=== PATIENT | male | born 1960 | race Caucasian/White ===

== ENCOUNTER 2017-06-08 22:46 | Inpatient (IN) | payer MEDICARE, SELFPAY ==
[~2017-06-08] VITALS: Ht 180.3 cm; Wt 68.1 kg
[2017-06-08] MEDS ORDERED: SODIUM CHLORIDE 0.9% 1,000 ML IV ONE (23:24)
[2017-06-08] MEDS ORDERED: VANCOMYCIN 1,400 MG in SODIUM CHLORIDE 0.9% 250 ML IV ONE (23:30)
[2017-06-08] MEDS ORDERED: VANCOMYCIN PER PHARMACY IV ONE (23:30)
[2017-06-08] MEDS ORDERED: SODIUM CHLORIDE FLUSH 10ML SYR IVF ONE (23:30)
[2017-06-08] MEDS ORDERED: AMPICILLIN/SULBACTAM 1,500 MG in SODIUM CHLORIDE 0.9% 50 ML IVPB ONE (23:30)
[2017-06-08] MEDS ORDERED: ONDANSETRON 2MG/ML, 2ML IVPush ONE (23:30)
[2017-06-08] MEDS ORDERED: MORPHINE SULFATE 4 MG/ML, 1ML IVPush PRN (23:30)
[2017-06-08] MEDS ORDERED: SODIUM CHLORIDE 0.9% 1,000ML IVBOLUS ONE (23:30)
[2017-06-08] MEDS ORDERED: MORPHINE SULFATE 4 MG/ML, 1ML ONE (23:51)
[2017-06-08] MEDS ORDERED: ONDANSETRON 2MG/ML, 2ML ONE (23:51)
[2017-06-08 23:56] LABS: BASOPHILS # (AUTO) 0.07 x10^3/uL (0-0.1); BASOPHILS % (AUTO) 1 % (0-1); EOSINOPHILS # (AUTO) 0.15 x10^3/uL (0-0.4); EOSINOPHILS % (AUTO) 1 % (1-7); LYMPHOCYTES # (AUTO) 2.25 x10^3/uL (1-3.4); LYMPHOCYTES % (AUTO) 16 % (22-44); MD NO; MEAN CORPUSCULAR HGB CONC 33.9 g/dL (33.2-36.2); MEAN CORPUSCULAR VOLUME 85.4 fL (81-97); MONOCYTES # (AUTO) 0.76 x10^3/uL (0.2-0.8); MONOCYTES % (AUTO) 5 % (2-9); NEUTROPHILS # (AUTO) 11.21 x10^3/uL (1.8-6.8); NEUTROPHILS % (AUTO) 78 % (42-75); PLATELET COUNT 480 x10^3/uL (130-400); RED BLOOD COUNT 3.79 x10^6/uL (4.38-5.82); RED CELL DISTRIBUTION WIDTH 13.7 % (9.4-14.8)
[2017-06-09 00:07] LABS: CHLORIDE 92 mmol/L (98-107)
[2017-06-09 00:08] LABS: ALBUMIN 2.1 g/dL (3.4-5.0); ANION GAP 12 mmol/L (5-15); CALCIUM 8.6 mg/dL (8.5-10.1); CREATININE 0.94 mg/dL (0.7-1.3)
[2017-06-09] MEDS ORDERED: VANCOMYCIN PER PHARMACY MC PRN (01:30)
[2017-06-09] MEDS ORDERED: hydrALAzine 20 MG/ML, 1ML IVPush PRN (02:00)
[2017-06-09] MEDS ORDERED: morphine SULFATE 10 MG/ML, 1ML IVPush PRN (02:00)
[2017-06-09] MEDS ORDERED: ONDANSETRON 2MG/ML, 2ML IVPush PRN (02:00)
[2017-06-09] MEDS ORDERED: ENALAPRILAT 1.25 MG/ML, 2ML IVPush PRN (02:00)
[2017-06-09] MEDS ORDERED: ACETAMINOPHEN 325 MG TABLET PO PRN (02:00)
[2017-06-09] MEDS ORDERED: POLYETHYLENE GLYCOL 17 GM PACKET PO PRN (02:00)
[2017-06-09] MEDS ORDERED: BISACODYL 10 MG SUPP PR PRN (02:00)
[2017-06-09 02:10] VITALS: BP 131/80
[2017-06-09 02:30] LABS: FREE T4 (FREE THYROXINE) 1.31 ng/dL (0.76-1.46); HEMOGLOBIN A1C 8.9 % (4.2-6.3); THYROID STIMULATING HORMONE 8.76 mIU/L (0.358-3.740)
[2017-06-09] MEDS: PIPERACILLIN/TAZO/PMX 3.375GM 50 ML IV SCH ×4 (02:34→19:19)
[2017-06-09] MEDS: SODIUM CHLORIDE 0.9% 1,000 ML IV SCH ×3 (02:36→20:00)
[2017-06-09] MEDS: ENOXAPARIN 40 MG/0.4 ML SQ SCH (02:37)
[2017-06-09 03:13] LABS: CULTURE INDICATED? YES; MICROSCOPIC INDICATED
[2017-06-09] MEDS ORDERED: PHARMACOKINETIC CONSULTATION MC ONE (04:00)
[2017-06-09] MEDS ORDERED: PHARMACOKINETIC MONITORING MC PRN (04:00)
[2017-06-09] MEDS: INSULIN ASPART 100 UNITS/ML, PEN SQ-INSULIN SCH ×4 (07:00→21:43)
[2017-06-09 07:43] VITALS: BP 114/73
[2017-06-09] MEDS: OXYcodone IR 5MG TABLET PO PRN ×2 (08:05→13:48)
[2017-06-09] MEDS: SENNA/DOCUSATE TABLET PO SCH (09:00)
[2017-06-09] MEDS: VANCOMYCIN 1,300 MG in SODIUM CHLORIDE 0.9% 250 ML IV SCH ×2 (11:24→23:36)
[2017-06-09] MEDS ORDERED: MAGNESIUM SULFATE PMX 2GM/50ML 50 ML IV ONE (12:00)
[2017-06-09 15:23] VITALS: BP 123/75
[2017-06-09 20:47] VITALS: BP 133/77
[2017-06-10] MEDS: PIPERACILLIN/TAZO/PMX 3.375GM 50 ML IV SCH ×4 (01:33→19:59)
[2017-06-10] MEDS: OXYcodone IR 5MG TABLET PO PRN ×3 (01:39→20:05)
[2017-06-10] MEDS: ENOXAPARIN 40 MG/0.4 ML SQ SCH (01:39)
[2017-06-10 03:28] VITALS: BP 143/83
[2017-06-10 05:29] LABS: CHLORIDE 100 mmol/L (98-107)
[2017-06-10 05:41] LABS: ALANINE AMINOTRANSFERASE 8 U/L (12-78); ALBUMIN 1.8 g/dL (3.4-5.0); ALKALINE PHOSPHATASE 85 U/L (45-117); ANION GAP 4 mmol/L (5-15); BILIRUBIN,TOTAL 0.5 mg/dL (0.2-1.0); CALCIUM 8.4 mg/dL (8.5-10.1); CREATININE 0.77 mg/dL (0.7-1.3); TOTAL PROTEIN 7.8 g/dL (6.4-8.2)
[2017-06-10 05:46] LABS: BASOPHILS # (AUTO) 0.07 x10^3/uL (0-0.1); BASOPHILS % (AUTO) 1 % (0-1); EOSINOPHILS # (AUTO) 0.13 x10^3/uL (0-0.4); EOSINOPHILS % (AUTO) 1 % (1-7); LYMPHOCYTES # (AUTO) 1.87 x10^3/uL (1-3.4); LYMPHOCYTES % (AUTO) 17 % (22-44); MD NO; MEAN CORPUSCULAR HEMOGLOBIN 28.9 pg (27.5-34.5); MEAN CORPUSCULAR HGB CONC 33.5 g/dL (33.2-36.2); MEAN CORPUSCULAR VOLUME 86.2 fL (81-97); MONOCYTES # (AUTO) 0.64 x10^3/uL (0.2-0.8); MONOCYTES % (AUTO) 6 % (2-9); NEUTROPHILS # (AUTO) 8.13 x10^3/uL (1.8-6.8); NEUTROPHILS % (AUTO) 75 % (42-75); PLATELET COUNT 353 x10^3/uL (130-400); RED CELL DISTRIBUTION WIDTH 13.9 % (9.4-14.8)
[2017-06-10] MEDS: INSULIN ASPART 100 UNITS/ML, PEN SQ-INSULIN SCH ×4 (07:42→22:47)
[2017-06-10] MEDS: SENNA/DOCUSATE TABLET PO SCH (09:00)
[2017-06-10] MEDS: VANCOMYCIN 1,300 MG in SODIUM CHLORIDE 0.9% 250 ML IV SCH (12:07)
[2017-06-10 14:22] VITALS: BP 153/87
[2017-06-10 20:41] VITALS: BP 132/81
[2017-06-11] MEDS: VANCOMYCIN 1,300 MG in SODIUM CHLORIDE 0.9% 250 ML IV SCH ×3 (00:12→23:59)
[2017-06-11] MEDS: ENOXAPARIN 40 MG/0.4 ML SQ SCH (02:10)
[2017-06-11] MEDS: PIPERACILLIN/TAZO/PMX 3.375GM 50 ML IV SCH ×4 (02:11→19:45)
[2017-06-11] MEDS: OXYcodone IR 5MG TABLET PO PRN ×2 (02:16→08:40)
[2017-06-11 02:54] VITALS: BP 135/78
[2017-06-11 05:41] LABS: BASOPHILS # (AUTO) 0.06 x10^3/uL (0-0.1); BASOPHILS % (AUTO) 1 % (0-1); EOSINOPHILS # (AUTO) 0.27 x10^3/uL (0-0.4); EOSINOPHILS % (AUTO) 3 % (1-7); LYMPHOCYTES # (AUTO) 2.26 x10^3/uL (1-3.4); LYMPHOCYTES % (AUTO) 20 % (22-44); MD NO; MEAN CORPUSCULAR HEMOGLOBIN 29.3 pg (27.5-34.5); MEAN CORPUSCULAR HGB CONC 33.9 g/dL (33.2-36.2); MEAN CORPUSCULAR VOLUME 86.3 fL (81-97); MEAN PLATELET VOLUME 7.8 fL (7.4-10.4); MONOCYTES # (AUTO) 0.69 x10^3/uL (0.2-0.8); MONOCYTES % (AUTO) 6 % (2-9); NEUTROPHILS # (AUTO) 7.85 x10^3/uL (1.8-6.8); NEUTROPHILS % (AUTO) 71 % (42-75); PLATELET COUNT 378 x10^3/uL (130-400); RED BLOOD COUNT 3.68 x10^6/uL (4.38-5.82); RED CELL DISTRIBUTION WIDTH 13.8 % (9.4-14.8)
[2017-06-11 05:58] LABS: ANION GAP 6 mmol/L (5-15); CALCIUM 8.6 mg/dL (8.5-10.1); CHLORIDE 98 mmol/L (98-107); CREATININE 0.67 mg/dL (0.7-1.3)
[2017-06-11] MEDS: INSULIN ASPART 100 UNITS/ML, PEN SQ-INSULIN SCH ×4 (08:05→20:56)
[2017-06-11] MEDS: SENNA/DOCUSATE TABLET PO SCH (08:39)
[2017-06-11] MEDS: INSULIN DETEMIR 100 UNITS/ML, PEN SQ-INSULIN SCH (08:40)
[2017-06-11 08:44] VITALS: BP 132/80
[2017-06-11 14:10] VITALS: BP 136/81
[2017-06-11 20:00] VITALS: BP 145/83
[2017-06-12] MEDS: PIPERACILLIN/TAZO/PMX 3.375GM 50 ML IV SCH ×4 (02:00→19:28)
[2017-06-12] MEDS: ENOXAPARIN 40 MG/0.4 ML SQ SCH (02:01)
[2017-06-12 03:59] VITALS: BP 138/81
[2017-06-12 06:46] LABS: BASOPHILS # (AUTO) 0.07 x10^3/uL (0-0.1); BASOPHILS % (AUTO) 1 % (0-1); EOSINOPHILS % (AUTO) 3 % (1-7); LYMPHOCYTES # (AUTO) 2.35 x10^3/uL (1-3.4); LYMPHOCYTES % (AUTO) 26 % (22-44); MD NO; MEAN CORPUSCULAR HEMOGLOBIN 28.7 pg (27.5-34.5); MEAN CORPUSCULAR HGB CONC 33.8 g/dL (33.2-36.2); MEAN PLATELET VOLUME 7.8 fL (7.4-10.4); MONOCYTES # (AUTO) 0.68 x10^3/uL (0.2-0.8); MONOCYTES % (AUTO) 8 % (2-9); NEUTROPHILS # (AUTO) 5.63 x10^3/uL (1.8-6.8); NEUTROPHILS % (AUTO) 62 % (42-75); PLATELET COUNT 459 x10^3/uL (130-400); RED BLOOD COUNT 3.81 x10^6/uL (4.38-5.82)
[2017-06-12 06:54] LABS: ANION GAP 7 mmol/L (5-15); CALCIUM 8.5 mg/dL (8.5-10.1); CHLORIDE 100 mmol/L (98-107); CREATININE 0.69 mg/dL (0.7-1.3)
[2017-06-12] MEDS: INSULIN ASPART 100 UNITS/ML, PEN SQ-INSULIN SCH ×4 (07:59→21:05)
[2017-06-12 08:15] VITALS: BP 123/78
[2017-06-12] MEDS: SENNA/DOCUSATE TABLET PO SCH (08:20)
[2017-06-12] MEDS: OXYcodone IR 5MG TABLET PO PRN (08:37)
[2017-06-12] MEDS: INSULIN DETEMIR 100 UNITS/ML, PEN SQ-INSULIN SCH (08:37)
[2017-06-12] MEDS ORDERED: LIDOCAINE 1%, 10ML ONE (08:57)
[2017-06-12] MEDS ORDERED: FLUMAZENIL 0.1 MG/1 ML, 5ML ONE (09:06)
[2017-06-12] MEDS ORDERED: MIDAZOLAM 1 MG/ML, 5ML ONE (09:06)
[2017-06-12] MEDS ORDERED: NALOXONE 1 MG/ML, 2ML ONE (09:06)
[2017-06-12] MEDS ORDERED: FENTANYL PF 100 MCG/2ML ONE ×2 (09:06)
[2017-06-12] MEDS ORDERED: MIDAZOLAM 1 MG/ML, 2ML ONE ×2 (09:07)
[2017-06-12] MEDS: VANCOMYCIN 1,300 MG in SODIUM CHLORIDE 0.9% 250 ML IV SCH (12:03)
[2017-06-12 12:33] VITALS: BP 119/71
[2017-06-12 21:38] VITALS: BP 134/91
[2017-06-13] MEDS: VANCOMYCIN 1,300 MG in SODIUM CHLORIDE 0.9% 250 ML IV SCH ×2 (00:03→13:42)
[2017-06-13 01:38] VITALS: BP 114/72
[2017-06-13] MEDS: ENOXAPARIN 40 MG/0.4 ML SQ SCH (01:59)
[2017-06-13] MEDS: PIPERACILLIN/TAZO/PMX 3.375GM 50 ML IV SCH ×4 (01:59→23:26)
[2017-06-13 05:32] LABS: BASOPHILS # (AUTO) 0.04 x10^3/uL (0-0.1); BASOPHILS % (AUTO) 1 % (0-1); EOSINOPHILS # (AUTO) 0.35 x10^3/uL (0-0.4); EOSINOPHILS % (AUTO) 4 % (1-7); LYMPHOCYTES # (AUTO) 2.31 x10^3/uL (1-3.4); LYMPHOCYTES % (AUTO) 28 % (22-44); MD NO; MEAN CORPUSCULAR HEMOGLOBIN 29.3 pg (27.5-34.5); MEAN CORPUSCULAR HGB CONC 34.2 g/dL (33.2-36.2); MEAN CORPUSCULAR VOLUME 85.8 fL (81-97); MEAN PLATELET VOLUME 7.9 fL (7.4-10.4); MONOCYTES # (AUTO) 0.66 x10^3/uL (0.2-0.8); MONOCYTES % (AUTO) 8 % (2-9); NEUTROPHILS # (AUTO) 5.04 x10^3/uL (1.8-6.8); NEUTROPHILS % (AUTO) 60 % (42-75); PLATELET COUNT 396 x10^3/uL (130-400); RED BLOOD COUNT 3.77 x10^6/uL (4.38-5.82); RED CELL DISTRIBUTION WIDTH 13.6 % (9.4-14.8)
[2017-06-13 05:38] LABS: CHLORIDE 101 mmol/L (98-107)
[2017-06-13 05:57] LABS: ANION GAP 7 mmol/L (5-15); CALCIUM 8.6 mg/dL (8.5-10.1); CREATININE 0.64 mg/dL (0.7-1.3)
[2017-06-13] MEDS: INSULIN ASPART 100 UNITS/ML, PEN SQ-INSULIN SCH ×4 (07:00→21:38)
[2017-06-13] MEDS ORDERED: MIDAZOLAM 1 MG/ML, 2ML ONE (07:32)
[2017-06-13] MEDS ORDERED: FENTANYL PF 250 MCG/5ML ONE (07:32)
[2017-06-13] MEDS ORDERED: PROPOFOL 10 MG/ML, 20ML ONE (07:33)
[2017-06-13] MEDS ORDERED: LABETALOL 5MG/ML, 20ML IV PRN (08:00)
[2017-06-13] MEDS ORDERED: hydrALAzine 20 MG/ML, 1ML IV PRN (08:00)
[2017-06-13] MEDS ORDERED: ONDANSETRON 2MG/ML, 2ML IVPush PRN (08:00)
[2017-06-13] MEDS ORDERED: PROMETHAZINE 25 MG/ML, 1ML IV PRN (08:00)
[2017-06-13] MEDS ORDERED: FENTANYL PF 100 MCG/2ML IV PRN (08:00)
[2017-06-13] MEDS ORDERED: OXYcodone 5 MG/5 ML ORAL.SOL UDC PO PRN (08:00)
[2017-06-13] MEDS ORDERED: MEPERIDINE/PF 25MG/0.5ML IVPush PRN (08:00)
[2017-06-13] MEDS ORDERED: LACTATED RINGERS 1,000 ML IV SCH (08:10)
[2017-06-13] MEDS ORDERED: LIDOCAINE 1%, 2ML SQ PRN (08:30)
[2017-06-13] MEDS ORDERED: OXYcodone 5 MG/5 ML ORAL.SOL UDC ONE (09:14)
[2017-06-13] MEDS ORDERED: HYDROmorphone 2 MG/ML, 1ML ONE (09:14)
[2017-06-13] MEDS: HYDROmorphone 1 MG/ML, 1ML IV PRN ×2 (09:16→09:31)
[2017-06-13] MEDS ORDERED: INSULIN REGULAR 100 UNITS/ML, 3ML VIAL SQ-INSULIN ONE (09:30)
[2017-06-13] MEDS: INSULIN DETEMIR 100 UNITS/ML, PEN SQ-INSULIN SCH (11:24)
[2017-06-13] MEDS: SENNA/DOCUSATE TABLET PO SCH (11:30)
[2017-06-13] MEDS: OXYcodone IR 5MG TABLET PO PRN (11:46)
[2017-06-13 11:50] VITALS: BP 119/72
[2017-06-13 12:20] VITALS: BP 123/70
[2017-06-13 18:33] VITALS: BP 123/73
[2017-06-14] MEDS: VANCOMYCIN 1,300 MG in SODIUM CHLORIDE 0.9% 250 ML IV SCH ×2 (00:01→12:15)
[2017-06-14 00:36] VITALS: BP 134/75
[2017-06-14] MEDS: ENOXAPARIN 40 MG/0.4 ML SQ SCH (02:06)
[2017-06-14] MEDS: PIPERACILLIN/TAZO/PMX 3.375GM 50 ML IV SCH ×4 (05:14→23:45)
[2017-06-14] MEDS: INSULIN ASPART 100 UNITS/ML, PEN SQ-INSULIN SCH ×4 (06:21→21:07)
[2017-06-14 08:31] VITALS: BP 125/75
[2017-06-14] MEDS: INSULIN DETEMIR 100 UNITS/ML, PEN SQ-INSULIN SCH (08:48)
[2017-06-14] MEDS: SENNA/DOCUSATE TABLET PO SCH (08:56)
[2017-06-14 13:38] VITALS: BP 131/77
[2017-06-14] MEDS ORDERED: AMOX1TAB64 PO (15:24)
[2017-06-14] MEDS ORDERED: SULF1TAB24 PO (15:24)
[2017-06-14] MEDS ORDERED: METF500T4 PO (15:26)
[2017-06-14] MEDS ORDERED: GLIP-164 PO (15:28)
[2017-06-14 21:18] VITALS: BP 145/76
[2017-06-15] MEDS: VANCOMYCIN 1,300 MG in SODIUM CHLORIDE 0.9% 250 ML IV SCH ×2 (00:23→12:14)
[2017-06-15 02:11] VITALS: BP 144/77
[2017-06-15] MEDS: ENOXAPARIN 40 MG/0.4 ML SQ SCH (02:19)
[2017-06-15] MEDS: PIPERACILLIN/TAZO/PMX 3.375GM 50 ML IV SCH ×2 (05:00→10:42)
[2017-06-15] MEDS: INSULIN ASPART 100 UNITS/ML, PEN SQ-INSULIN SCH ×2 (07:49→11:00)
[2017-06-15] MEDS: INSULIN DETEMIR 100 UNITS/ML, PEN SQ-INSULIN SCH (07:49)
[2017-06-15] MEDS: SENNA/DOCUSATE TABLET PO SCH (07:50)
[2017-06-15 10:44] VITALS: BP 124/78
[2017-06-15] MEDS ORDERED: FLU VACC QS2017-18 (36MOS+) UP/PF 0.5 ML IM-VACC ONE (12:30)
[2017-06-15 13:47] VITALS: BP 122/66
[2017-06-15] MEDS ORDERED: DOCU-131 PO ×2 (14:15→19:46)
[2017-06-15] MEDS ORDERED: TAMS-11 PO (14:15)
[2017-06-15] MEDS ORDERED: CARV6.252 PO (14:15)
[2017-06-15] MEDS ORDERED: LEVO100T5 PO (14:16)
[2017-06-15] MEDS ORDERED: NPH,100V SQ (14:17)
[2017-06-16] MEDS ORDERED: VANCOMYCIN 1,300 MG in SODIUM CHLORIDE 0.9% 250 ML IV SCH (06:00)
== END 2017-06-15 15:20 | disposition home or self-care (01) | DRG 853 ==
LOC: ED 23:59 → EDIP 06-09 00:44 → 4NOR 06-09 01:37
PROVIDERS: ADMIT Internal Medicine; ATTEND Internal Medicine
PROC: 0T2BX0Z Change Drainage Device in Bladder, External Approach (ICD-10-PCS; 2017-06-12)
PROC: 0KBT0ZZ Excision of Left Lower Leg Muscle, Open Approach (ICD-10-PCS; principal; 2017-06-13 08:00)
PROC: 3E0234Z Introduction of Serum, Toxoid and Vaccine into Muscle, Percutaneous Approach (ICD-10-PCS; 2017-06-15)
DX: A41.9 Sepsis, unspecified organism (principal); E43 Unspecified severe protein-calorie malnutrition; E11.622 Type 2 diabetes mellitus with other skin ulcer; E11.65 Type 2 diabetes mellitus with hyperglycemia; L03.115 Cellulitis of right lower limb; E83.42 Hypomagnesemia; N39.0 Urinary tract infection, site not specified; E87.1 Hypo-osmolality and hyponatremia; L97.919 Non-pressure chronic ulcer of unspecified part of right lower leg with unspecified severity; L97.929 Non-pressure chronic ulcer of unspecified part of left lower leg with unspecified severity; Z23 Encounter for immunization; Z68.20 Body mass index [BMI] 20.0-20.9, adult; B96.20 Unspecified Escherichia coli [E. coli] as the cause of diseases classified elsewhere; E11.69 Type 2 diabetes mellitus with other specified complication; H91.90 Unspecified hearing loss, unspecified ear; I10 Essential (primary) hypertension; Z79.4 Long term (current) use of insulin; Z91.14 Patient's other noncompliance with medication regimen
CPT/HCPCS: 36415; 51705; 75984; 80048; 80053; 80202; 81001; 82040; 82962; 83036; 83605; 83735; 84100; 84145; 84439; 84443; 85025; 87040; 87070; 87077; 87086; 87147; 87186; 87205; 90686; 93922; 96365; 96368; 96375; 99156; 99157; J1170; J1650; J1815; J2250; J2405; J2543; J2704; J3010; J3370; J3490; J0295; J2310; J3475; J7030; J7050; J7120

== ENCOUNTER 2020-06-09 16:06 | Inpatient (IN) | payer MEDICARE, OTHER ==
[~2020-06-09] VITALS: Ht 170.2 cm; Wt 72.3 kg
[~2020-06-09 16:06] MED LIST: AMOX1TAB64 PO; CARV6.252 PO; DOCU-131 PO; GLIP10TA24 PO; LEVO100T5 PO; METF500T17 PO; NPH,100V SQ; SULF1TAB24 PO; TAMS-11 PO
--- NOTE | 2020-06-09 16:18 | NUR ---
LATE ENTRY DUE TO PATIENT CARE: PATIENT BIB [facility] WITH CHIEF C/O N/V/D AND DIZZINESS FOR THE LAST 2-3 HOURS. PER EMS PATIENT WAS RECENTLY STARTED ON METFORMIN AND METOPROLOL. PATIENT WAS FOUND LAYING IN HIS OWN STOOL AT HOUSE. VITALS STABLE EN ROUTE, PATIENT'S GCS IS 15, STANTON IN PLACE. NADN, PATIENT IS DEAF BUT USES PAPER AND PEN TO COMMUNICATE. CLEANED PATIENT UP WITH HELP OF EXCHANGE FLOOR MANAGER, CLEANED STANTON CATHETER. ERMD AT BEDSIDE FOR EVALUATION.
--- NOTE | 2020-06-09 17:10 | NUR ---
20 GAUGE IV STARTED RFA, BOLUS HUNG, PATIENT WATCHING TV, SIDE RAILS UP X2, VSS, CALL LIGHT WITHIN REACH. BREEDER SERVICE TECHNICIAN AT BEDSIDE.
[2020-06-09 17:26] LABS: BASOPHILS % (AUTO) 1 % (0-1); EOSINOPHILS % (AUTO) 4 % (1-7); LYMPHOCYTES % (AUTO) 27 % (22-44); MEAN CORPUSCULAR HEMOGLOBIN 30.6 pg (27.5-34.5); MEAN CORPUSCULAR HGB CONC 34.8 g/dL (33.2-36.2); MEAN PLATELET VOLUME 8.1 fL (7.4-10.4); MONOCYTES % (AUTO) 7 % (2-9); NEUTROPHILS % (AUTO) 61 % (42-75); PLATELET COUNT 327 x10^3/uL (130-400); RED BLOOD COUNT 3.93 x10^6/uL (4.38-5.82); RED CELL DISTRIBUTION WIDTH 12.7 % (9.4-14.8)
[2020-06-09 17:28] LABS: ALBUMIN 2.6 g/dL (3.4-5.0); ANION GAP 7 mmol/L (5-15); CALCIUM 8.5 mg/dL (8.5-10.1); CHLORIDE 105 mmol/L (98-107); CREATININE 0.61 mg/dL (0.7-1.3)
[2020-06-09] MEDS ORDERED: SODIUM CHLORIDE 0.9% 1,000ML IVBOLUS ONE (17:30)
[2020-06-09 17:35] LABS: MD NO
[2020-06-09 17:36] LABS: ALANINE AMINOTRANSFERASE 20 U/L (12-78); ALKALINE PHOSPHATASE 75 U/L (45-117); BILIRUBIN,TOTAL 0.3 mg/dL (0.2-1.0); TOTAL PROTEIN 6.3 g/dL (6.4-8.2)
--- NOTE | 2020-06-09 17:41 | NUR ---
BREAK RN: PT C/O OF LBP, REPOSITIONED X 2 RN ASSIST HOB 35 DEGREES WITH EFFECT. PT VSS, LAB RESULTS PENDING. PT REQUESTING FOOD. I EXPLAINED THAT I WOULD ASK MD ONCE LAB RESULTS ARE POSTED. CALL LIGHT W/I REACH. PT IS DEAF, ABLE TO READ. SIGN POSTED ABOVE DOOR
--- NOTE | 2020-06-09 17:54 | NUR ---
BREAK RN: DR FLOOD AT BEDSIDE. OK TO FEED PT. PLAN FOR ADMIT DISCUSSED.
[2020-06-09] MEDS ORDERED: SODIUM CHLORIDE FLUSH 10ML SYR IVF ONE (18:00)
--- NOTE | 2020-06-09 18:03 | NUR ---
BREAK RN": TURKEY SANDWICH AND DIET SPRITE PROVIDED AND SET UP FOR PT. CALL LIGHT W/I REACH
[2020-06-09] MEDS ORDERED: PROMETHAZINE 25 MG/ML, 1ML IM PRN (18:30)
[2020-06-09] MEDS ORDERED: ONDANSETRON 2MG/ML, 2ML IVPush PRN (18:30)
[2020-06-09] MEDS ORDERED: DOCUSATE 100 MG CAPSULE PO PRN (18:30)
[2020-06-09] MEDS ORDERED: ACETAMINOPHEN 325 MG TABLET PO PRN (18:30)
[2020-06-09] MEDS ORDERED: LABETALOL 5MG/ML, 20ML IVPush PRN (18:30)
[2020-06-09] MEDS ORDERED: SODIUM CHLORIDE 0.9% 1,000 ML IV SCH (18:30)
--- NOTE | 2020-06-09 18:42 | NUR ---
2ND TURKEY SANDWICH PROVIDED, RADHAN, VSS, SIDE RAILS UP X2, CALL LIGHT WITHIN REACH.
[2020-06-09] MEDS ORDERED: HEPARIN 5,000 UNITS/ML, 1ML ONE (18:53)
[2020-06-09] MEDS: HEPARIN 5,000 UNITS/ML, 1ML SQ SCH (18:55)
--- NOTE | 2020-06-09 19:27 | NUR ---
REPORT GIVEN TO CHERIE BASSETT ON MEDICAL FOR TRANSFER OF PATIENT CARE.
--- NOTE | 2020-06-09 19:34 | NUR ---
PATIENT TRANSFERRED TO MEDICAL FLOOR IN STABLE CONDITION VIA GURNEY WITH GUT CLEANER. ALL PATIENT BELONGINGS GATHERED AND TAKEN TO FLOOR WITH PATIENT, MEDS SENT UP WITH PATIENT.
[2020-06-09 20:10] VITALS: BP 148/75
[2020-06-09] MEDS: CARVEDILOL 6.25 MG TABLET PO SCH (20:14)
[2020-06-09] MEDS: metFORMIN 500 MG TABLET PO SCH (20:14)
[2020-06-09] MEDS: INSULIN NPH HUMAN 100 UNIT/ML, 3ML VIAL SQ-INSULIN SCH (21:32)
[2020-06-09] MEDS: INSULIN LISPRO 100 UNITS/ML, PEN SQ-INSULIN SCH (21:32)
[2020-06-10 02:08] VITALS: BP 150/69
[2020-06-10] MEDS: HEPARIN 5,000 UNITS/ML, 1ML SQ SCH ×3 (03:03→20:14)
[2020-06-10 05:13] LABS: BASOPHILS % (AUTO) 1 % (0-1); EOSINOPHILS % (AUTO) 6 % (1-7); LYMPHOCYTES % (AUTO) 34 % (22-44); MEAN CORPUSCULAR HEMOGLOBIN 30.9 pg (27.5-34.5); MEAN CORPUSCULAR HGB CONC 35.5 g/dL (33.2-36.2); MEAN PLATELET VOLUME 8.3 fL (7.4-10.4); MONOCYTES % (AUTO) 7 % (2-9); NEUTROPHILS % (AUTO) 52 % (42-75); PLATELET COUNT 287 x10^3/uL (130-400); RED BLOOD COUNT 3.56 x10^6/uL (4.38-5.82)
[2020-06-10 05:14] LABS: MD NO
[2020-06-10 05:23] LABS: ANION GAP 5 mmol/L (5-15); CALCIUM 7.6 mg/dL (8.5-10.1); CHLORIDE 109 mmol/L (98-107)
[2020-06-10 05:24] LABS: CREATININE 0.64 mg/dL (0.7-1.3)
[2020-06-10] MEDS: LEVOTHYROXINE 100 MCG TABLET PO SCH (06:00)
[2020-06-10 06:46] VITALS: BP 156/76
[2020-06-10] MEDS: INSULIN LISPRO 100 UNITS/ML, PEN SQ-INSULIN SCH ×4 (07:21→21:00)
[2020-06-10] MEDS ORDERED: POTASSIUM CHLORIDE 20 MEQ TAB.ER.PRT ONE ×2 (12:02→16:21)
[2020-06-10] MEDS: metFORMIN 500 MG TABLET PO SCH ×2 (12:11→20:14)
[2020-06-10] MEDS: POTASSIUM CHLORIDE 20 MEQ TAB.ER.PRT PO SCH ×2 (12:11→16:29)
[2020-06-10] MEDS: CARVEDILOL 6.25 MG TABLET PO SCH ×2 (12:11→20:14)
[2020-06-10] MEDS: TAMSULOSIN 0.4 MG CAP.ER.24H PO SCH (12:11)
[2020-06-10] MEDS: NICOTINE 14MG/24 HR PATCH.TD24 TD SCH (12:12)
[2020-06-10] MEDS: INSULIN NPH HUMAN 100 UNIT/ML, 3ML VIAL SQ-INSULIN SCH ×2 (12:12→21:00)
[2020-06-10 14:44] VITALS: BP 143/73
[2020-06-10 15:37] LABS: FREE T4 (FREE THYROXINE) 0.94 ng/dL (0.76-1.46)
[2020-06-10 17:47] LABS: CLOSTRIDIUM DIFFICILE ANTIGEN NEGATIVE; CLOSTRIDIUM DIFFICILE TOXIN NEGATIVE (Negative)
[2020-06-10 19:32] VITALS: BP 152/82
[2020-06-10] MEDS: CALCIUM/VITAMIN D3 250-125 TABLET PO SCH (20:16)
[2020-06-11 01:44] VITALS: BP 154/82
[2020-06-11] MEDS: HEPARIN 5,000 UNITS/ML, 1ML SQ SCH ×3 (05:28→20:00)
[2020-06-11] MEDS: LEVOTHYROXINE 100 MCG TABLET PO SCH (05:29)
[2020-06-11] MEDS: INSULIN LISPRO 100 UNITS/ML, PEN SQ-INSULIN SCH ×4 (07:00→21:00)
[2020-06-11 07:30] VITALS: BP 166/89
[2020-06-11] MEDS: POTASSIUM CHLORIDE 20 MEQ TAB.ER.PRT PO SCH ×2 (07:47→16:32)
[2020-06-11] MEDS: NICOTINE 14MG/24 HR PATCH.TD24 TD SCH (09:00)
[2020-06-11] MEDS: INSULIN NPH HUMAN 100 UNIT/ML, 3ML VIAL SQ-INSULIN SCH ×2 (09:00→21:00)
[2020-06-11] MEDS: CALCIUM/VITAMIN D3 250-125 TABLET PO SCH ×2 (09:00→21:00)
[2020-06-11] MEDS: TAMSULOSIN 0.4 MG CAP.ER.24H PO SCH (10:07)
[2020-06-11] MEDS: metFORMIN 500 MG TABLET PO SCH ×2 (10:08→21:00)
[2020-06-11] MEDS: CARVEDILOL 6.25 MG TABLET PO SCH ×2 (10:08→21:00)
[2020-06-11 12:32] VITALS: BP 182/92
[2020-06-11 12:40] VITALS: BP 166/82
[2020-06-11] MEDS ORDERED: DIPH1TAB6 PO (12:50)
[2020-06-11 19:02] VITALS: BP 165/79
[2020-06-12 00:32] VITALS: BP 150/76
[2020-06-12 01:56] VITALS: BP 167/81
[2020-06-12] MEDS: HEPARIN 5,000 UNITS/ML, 1ML SQ SCH ×2 (04:00→11:49)
[2020-06-12] MEDS: LEVOTHYROXINE 100 MCG TABLET PO SCH (05:06)
[2020-06-12] MEDS: INSULIN LISPRO 100 UNITS/ML, PEN SQ-INSULIN SCH ×2 (07:00→11:30)
[2020-06-12] MEDS: metFORMIN 500 MG TABLET PO SCH (07:51)
[2020-06-12] MEDS: POTASSIUM CHLORIDE 20 MEQ TAB.ER.PRT PO SCH (07:51)
[2020-06-12] MEDS: CALCIUM/VITAMIN D3 250-125 TABLET PO SCH (07:51)
[2020-06-12] MEDS: CARVEDILOL 6.25 MG TABLET PO SCH (07:52)
[2020-06-12] MEDS: TAMSULOSIN 0.4 MG CAP.ER.24H PO SCH (07:52)
[2020-06-12] MEDS: INSULIN NPH HUMAN 100 UNIT/ML, 3ML VIAL SQ-INSULIN SCH ×2 (07:53→08:06)
[2020-06-12] MEDS: NICOTINE 14MG/24 HR PATCH.TD24 TD SCH (07:54)
[2020-06-12 08:07] VITALS: BP 153/83
[2020-06-12 13:27] VITALS: BP 150/90
== END 2020-06-12 13:59 | disposition home or self-care (01) | DRG 641 ==
LOC: ED 17:37 → EDIP 18:05 → INTOOBSV 18:05 → 3N 19:40 → OBSVTOIN 06-10 14:41
PROVIDERS: ADMIT Family Medicine; ATTEND Hospitalist
DX: R62.7 Adult failure to thrive (principal); R19.7 Diarrhea, unspecified; E11.9 Type 2 diabetes mellitus without complications; I10 Essential (primary) hypertension; E03.9 Hypothyroidism, unspecified; E87.6 Hypokalemia; Z79.899 Other long term (current) drug therapy; Z89.511 Acquired absence of right leg below knee; Z89.512 Acquired absence of left leg below knee; Z87.891 Personal history of nicotine dependence
CPT/HCPCS: 36415; 80048; 80053; 82962; 84439; 84443; 84481; 85025; 87324; G0378; J1644; J1815; J7030

== ENCOUNTER 2020-12-20 00:24 | Emergency (ER) | payer OTHER ==
[~2020-12-20 00:24] MED LIST changes: +DIPH1TAB6 PO; +SULF-23 PO; -SULF1TAB24 PO
[2020-12-20 00:45] VITALS: BP 155/90
== END 2020-12-20 03:01 | disposition home or self-care (01) ==
LOC: ED 02:57
DX: Z02.9 Encounter for administrative examinations, unspecified (principal); Z72.9 Problem related to lifestyle, unspecified; I10 Essential (primary) hypertension; E11.9 Type 2 diabetes mellitus without complications; F17.200 Nicotine dependence, unspecified, uncomplicated
CPT/HCPCS: 99281